=== PATIENT | male | born 1970 | race African-American/Black ===

== ENCOUNTER 2024-02-09 02:12 | Emergency (ER) | payer SELFPAY ==
[~2024-02-09] VITALS: Ht 175.3 cm; Wt 90.7 kg
--- NOTE | 2024-02-09 02:40 | NUR ---
PT AMB TO [facility] WITH STEADY GAIT.
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
--- NOTE | 2024-02-09 02:42 | NUR ---
Dr. Lagos at bedside for MSE.
[2024-02-09] MEDS ORDERED: HYDR-3980 PO (02:54)
[2024-02-09] MEDS ORDERED: CYCL10TA9 PO (02:54)
--- NOTE | 2024-02-09 03:04 | NUR ---
Patient discharged to home in stable condition. Written and verbal after care instructions given. Patient verbalizes understanding of instructions. Stressed follow up or return to ER for worsening s/s. Patient ambulated out of the ER with steady gait. All belongings with patient.
[2024-02-09 03:05] VITALS: BP 145/80; O2SAT 97
== END 2024-02-09 03:05 | disposition home or self-care (01) ==
LOC: ER 02:18
DX: M54.50 Low back pain, unspecified (principal)
CPT/HCPCS: A4606; A4663